=== PATIENT | female | born 1975 | race Caucasian/White ===

== ENCOUNTER 2024-02-14 21:33 | Emergency (ER) | payer OTHER ==
[2024-02-14 22:07] VITALS: BP 113/69; O2SAT 100
--- NOTE | 2024-02-14 23:20 | ED Physician Documentation ---
PD HPI HEENT - Stated complaint Stated Complaint: SINUS PX - Chief complaint Chief Complaint: Heent - History obtained from History obtained from: Patient - Additional information Additional information: HPI from patient. Patient c/o bilateral facial pain x 3-4 days, waxing and waning without inciting/exacerbating factors. Improves with nasal decongestant spray and ibuprofen. The pain starts bilaterally between nose and eyes, spreads bilaterally to below both eyes and then to ears (but not ear pain per se). She also has generalized headache that is more constant. She had URI symptoms 2 weeks ago but these resolved nearly one week [employer]. Denies fever, cough, dyspnea. She does not feel sinus congestion. Denies visual changes, weakness, numbness. Review of Systems Constitutional: denies: Fever, Chills, Sweats Eyes: denies: Loss of vision, Decreased vision, Photophobia Ears: denies: Loss of hearing, Ear pain, Drainage/discharge Nose: reports: Sinus pressure / pain. 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 - Present Medications Home Medications: Ambulatory Orders Medication Instructions Recorded Confirmed Amox/Clav 875/125 [Augmentin 1 tablet PO Q12H 10 Days #20 tablet 02/14/24 875/125 Tab] - Allergies Allergies/Adverse Reactions: Allergies Allergy/AdvReac Type Severity Reaction Status Date / Time No Known Drug Allergies Allergy Verified 02/14/24 22:07 - Social History Does the pt smoke?: No Smoking Status: Never smoker Does the pt drink ETOH?: Yes ETOH Use: Wine Does the pt have substance abuse?: No - Immunizations Immunizations are current?: Yes - POLST Patient has POLST: No PD ED PE NORMAL - Vitals Vital signs reviewed: Yes - General General: Alert and oriented X 3, No acute distress, Well developed/nourished - HEENT HEENT: PERRL, EOMI, Moist mucous membranes, Pharynx benign, Other (mild tende rness to percussion bilateral maxillary sinuses without facial erythema or edema. symmetric facies noted) - Neck Neck: Supple, no meningeal sign - Neuro Neuro: Alert and oriented X 3, Normal speech Eye Opening: Spontaneous Motor: Obeys Commands Verbal: Oriented GCS Score: 15 PD ED PE EXPANDED - Eyes Eyes: PERRL, Normal eyelids Results - Vitals Vitals: Vital Signs - 24 hr 02/14/24 22:03 Temperature 36.6 C Heart Rate 78 Respiratory 16 Rate Blood Pressure 113/69 O2 Saturation 100 Oxygen O2 Source Room air PD Medical Decision Making - ED course Complexity details: considered differential, d/w patient ED course: Description of symptoms is s/o sinusitis; this is based on her recent URI which might have left lingering sinus inflammation, and also based on location of pain (patient points to sphenoid and medial aspects of frontal sinuses, and describes spread to area of maxillary sinuses). That she is not sounding congested and denies feeling as though her sinuses are congested is less consistent with acute sinusitis, but an alternative diagnosis (particularly a potentially serious diagnosis) is not supported by this H+P. No emergent testing indicated at this time. Will treat empirically for bacterial sinusitis; given augmentin in ED with 10-day course e-prescribed to patient's pharmacy of choice. Return precautions reviewed Departure - Departure Disposition: 01 Home, Self Care Clinical Impression: Sinusitis Condition: Good Instructions: ED Sinusitis Abx Tx Prescriptions: Amox/Clav 875/125 [Augmentin 875/125 Tab] 1 tablet PO Q12H 10 Days #20 tablet Comments: The description of symptoms sounds suggestive of sinusitis. For this, you were given the first dose of antibiotic (Augmentin) in the emergency department, and I have electronically submitted a prescription for a 10-day course of this antibiotic to the [facility] pharmacy in [place]. Discharge Date/Time: 02/14/24 23:57
[2024-02-14] MEDS: AMOX/CLAV 875 MG/125 MG TABLET PO STA (23:56)
== END 2024-02-14 23:57 | disposition home or self-care (01) ==
LOC: ED 21:33
DX: J32.9 Chronic sinusitis, unspecified (principal)
CPT/HCPCS: 99283; A9270